=== PATIENT | female | born 1965 | race Caucasian/White ===

== ENCOUNTER 2019-03-25 19:24 | Emergency (ER) | payer OTHER ==
[~2019-03-25] VITALS: Ht 147.3 cm; Wt 54.0 kg
[~2019-03-25 19:24] MED LIST: NEURONTIN100 MG PO; PAROXETINE20 MG PO; TRAZODONE100 MG PO; WELLBUTRIN XL300 MG PO
[2019-03-25 22:43] LABS: BASO # 0.1 10*3/uL (0.0-0.1); BASO % 0.5 % (0.0-1.0); EOS # 0.2 10*3/uL (0.0-0.4); EOS % 1.2 % (1.0-4.0); HEMATOCRIT 38.5 % (37.0-47.0); LYMPH # 2.7 10*3/uL (1.3-4.4); LYMPH % 20.1 % (27.0-41.0); MEAN CELL VOLUME 82.6 fl (81.0-99.0); MEAN CORPUSCULAR HGB 27.9 pg (27.0-31.0); MEAN CORPUSCULAR HGB CONC 33.8 g/dl (33.0-37.0); MEAN PLATELET VOLUME 8.4 fl (9.6-12.3); MONO # 0.7 10*3/uL (0.1-1.0); MONO % 4.9 % (3.0-9.0); NEUT # 9.6 10*3/uL (2.3-7.9); NEUT % 72.9 % (47.0-73.0); PLATELET COUNT AUTOMATED 402 10*3/uL (130-400); RED BLOOD COUNT 4.66 10*6/uL (4.10-5.10); RED CELL DISTRI WIDTH 14.6 % (0-14.5); WHITE BLOOD COUNT 13.2 10*3/uL (4.8-10.8)
[2019-03-25 22:57] LABS: ALBUMIN 3.5 gm/dl (3.1-4.5); ALKALINE PHOSPHATASE 53 U/L (45-117); BUN 8 mg/dl (7-24); CHLORIDE 108 mmol/L (98-107); CREATININE 0.59 mg/dL (0.55-1.02); POTASSIUM 3.4 mmol/L (3.5-5.1); SGOT/AST 78 IU/L (3-35); SGPT/ALT 128 U/L (12-78); SODIUM 141 mmol/L (136-145); TOTAL PROTEIN 7.2 gm/dL (6.4-8.2)
[2019-03-25 22:58] LABS: ETHYL ALCOHOL < 3.0 mg/dl (<3)
== END 2019-03-26 08:40 | disposition home or self-care (01) ==
LOC: ED 19:24
PROVIDERS: Emergency Medicine
DX: F10.20 Alcohol dependence, uncomplicated (principal); R68.83 Chills (without fever); Z79.899 Other long term (current) drug therapy; Y90.9 Presence of alcohol in blood, level not specified

== ENCOUNTER 2019-07-14 12:06 | Inpatient (IN) | payer OTHER ==
[~2019-07-14] VITALS: Ht 147.3 cm; Wt 44.6 kg
[2019-07-14 12:28] VITALS: BP 171/87
--- NOTE | 2019-07-14 12:28 | NUR ---
53 year old FEMALE admitted to room # 501 for stabilization. 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 Compliant with admission procedure. Patient denies any anxiety, but is unable to sit still, taps toes to floor continuously, looks about room, unable to focus eyes on nurse during interview. See assessment forms for additional information about patient status.
[2019-07-14] MEDS ORDERED: GLUCOTROL5 MG PO (12:36)
[2019-07-14] MEDS ORDERED: ZESTRIL10 MG PO (12:36)
[2019-07-14] MEDS ORDERED: PROAIR HFA8.5 GM INH (12:37)
[2019-07-14] MEDS ORDERED: NEURONTIN100 MG PO (12:37)
[2019-07-14] MEDS ORDERED: PAXIL20 M1 PO (12:38)
[2019-07-14] MEDS ORDERED: GLUCOPHAGE1000 MG PO (12:38)
[2019-07-14] MEDS ORDERED: TRAZODONE100 MG PO (12:39)
[2019-07-14] MEDS ORDERED: LATUDA40 M1 PO (12:41)
[2019-07-14] MEDS ORDERED: BUPROPION HCL300 MG PO (12:41)
--- NOTE | 2019-07-14 13:37 | NUR ---
URINE TESTS SENT OFF TO ALLOW FOR MEDS TO BE ORDERED
[2019-07-14 13:46] LABS: BILIRUBIN 2+ (NEGATIVE); BLOOD TRACE-INTACT (NEGATIVE); CLARITY SL CLOUDY (CLEAR); COLOR YELLOW (YELLOW); GLUCOSE 1+ (NEGATIVE); KETONE 2+ (NEGATIVE); LEUKO ESTERASE NEGATIVE (NEGATIVE); NITRITE NEGATIVE (NEGATIVE); SPECIFIC GRAVITY >= 1.030 (1.005-1.030)
[2019-07-14 13:54] LABS: URINE AMPHETAMINES < 1000 (1000ng/ml); URINE BARBITURATES < 200 (200ng/ml); URINE BENZODIAZEPINES < 200 (200ng/ml); URINE CANNABINOIDS (THC) < 50 (50ng/ml); URINE COCAINE > 300 (300ng/ml); URINE METHADONE < 300 (300ng/ml); URINE OPIATES > 300 (300ng/ml)
[2019-07-14 13:57] LABS: BACTERIA 1+; EPITHELIAL CELLS 41-50; MUCOUS 4+; WBC 0-2 wbc/hpf (0-5)
[2019-07-14 13:58] LABS: URINE PHENCYCLIDINE < 25 (25ng/ml)
[2019-07-14 14:12] LABS: BASO # 0.1 10*3/uL (0.0-0.1); BASO % 0.5 % (0.0-1.0); EOS % 0.3 % (1.0-4.0); HEMATOCRIT 46.1 % (37.0-47.0); HEMOGLOBIN 15.7 g/dl (12.0-16.0); LYMPH # 2.3 10*3/uL (1.3-4.4); LYMPH % 22.9 % (27.0-41.0); MEAN CELL VOLUME 85.7 fl (81.0-99.0); MEAN CORPUSCULAR HGB 29.2 pg (27.0-31.0); MEAN CORPUSCULAR HGB CONC 34.1 g/dl (33.0-37.0); MEAN PLATELET VOLUME 9.1 fl (9.6-12.3); MONO # 0.4 10*3/uL (0.1-1.0); NEUT # 7.3 10*3/uL (2.3-7.9); PLATELET COUNT AUTOMATED 354 10*3/uL (130-400); RED BLOOD COUNT 5.38 10*6/uL (4.10-5.10); RED CELL DISTRI WIDTH 15.4 % (0-14.5); WHITE BLOOD COUNT 10.1 10*3/uL (4.8-10.8)
[2019-07-14 14:22] LABS: INTERNATIONAL NORM RATIO 0.9 (2.0-3.5)
--- NOTE | 2019-07-14 14:48 | NUR ---
PATIENT MEETS [facility]. CINA=15. PATIENT IS WANTING RESIDENTIAL TREATMENT FOR HER AFTERCARE PLAN. [facility] STAFF PROVIDED PATIENT WITH REFERRAL OPTIONS. SHIREEN MORAES B.A. DOG HAIR CLIPPER
[2019-07-14 15:02] LABS: ALBUMIN 4.3 gm/dl (3.1-4.5); ALKALINE PHOSPHATASE 89 U/L (45-117); BUN 6 mg/dl (7-24); CHLORIDE 98 mmol/L (98-107); CREATININE 0.68 mg/dL (0.55-1.02); POTASSIUM 3.6 mmol/L (3.5-5.1); SGOT/AST 82 IU/L (3-35); SODIUM 133 mmol/L (136-145); TOTAL PROTEIN 8.9 gm/dL (6.4-8.2)
--- NOTE | 2019-07-14 15:18 | NUR ---
ROUTINE LIBRIUM STARTED - PRN VISTARIL & ZOFRAN GIVEN - PT OFFERED BUT DECLINED RODY
[2019-07-14 15:21] LABS: ETHYL ALCOHOL < 3.0 mg/dl (<3); SGPT/ALT 127 U/L (12-78)
[2019-07-14 16:00] VITALS: BP 160/76
--- NOTE | 2019-07-14 17:33 | NUR ---
PATIENT ARGUING WITH SOMEONE ON THE PHONE.
[2019-07-14 20:00] VITALS: BP 142/66
--- NOTE | 2019-07-14 21:00 | NUR ---
PATIENT SLEEPING. AROUSES EASILY. DENIES ANY NEEDS AT THIS TIME. MVI INFUSING PER ORDER. PATIENT STATES SHE FEELS OK RIGHT NOW JUST REALLY TIRED. CALL LIGHT WITHIN REACH, WILL MONITOR
--- NOTE | 2019-07-14 22:00 | NUR ---
PATIENT AT THIS TIME REFUSED COVERAGE FOR BLOOD SUGAR OF 246. SHE STATES THAT SHE IS NOT AN INSULIN DEPENDENT DIABETIC AND DOES NOT WANT TO BOTTOM OUT OVER NIGHT
[2019-07-15] VITALS: BP 141/68
--- NOTE | 2019-07-15 04:22 | NUR ---
24 HR chart check completed.
--- NOTE | 2019-07-15 05:11 | NUR ---
PATIENTS BLOOD SUGAR THIS MORNING 394. EXPLAINED TO THE PATIENT THAT WE NEED TO START TAKING INSULIN. SHE AGREED AND UNDERSTOOD WHY.
[2019-07-15 09:17] VITALS: BP 140/68
[2019-07-15 12:00] VITALS: BP 177/92
--- NOTE | 2019-07-15 12:04 | NUR ---
PATIENT HAS BEEN ACCEPTED TO [facility] FOR RESIDENTIAL TREATMENT. THEY HAVE A BED AVAILABLE FOR HER FOR THURSDAY, AT 1:00PM. [place] STAFF WILL NEED TO SET UP TRANSPORTATION FOR HER THROUGH HER INSURANCE FOR THURSDAY. PATIENT AGREES AND UNDERSTANDS HER AFTERCARE PLAN. SHIREEN MORAES B.A. CORE INSERTER
[2019-07-15 16:00] VITALS: BP 148/74
--- NOTE | 2019-07-15 18:23 | NUR ---
IN TO ROOM. PATIENT AWAKE, ALERT AND ORIENTED. NO S/S OF DISTRESS OR SOB NOTED. NO STATED COMPLAINTS. PATIENT TALKING ON PHONE BED IN LOWEST LOCKED POSITION AND CALL LIGHT WITHIN REACH.
[2019-07-15 20:00] VITALS: BP 140/62
[2019-07-16] VITALS: BP 136/68
--- NOTE | 2019-07-16 04:00 | NUR ---
SLEEPING IN BED. RESP-EASY AND REGULAR. CALL LIGHT IN REACH.
--- NOTE | 2019-07-16 05:10 | NUR ---
BSG-503, SEE EMAR. NO C/O AT THIS TIME.
--- NOTE | 2019-07-16 05:15 | NUR ---
CALLED DR. DUDLEY AWARE OF BSG. SHE SAID TO GIVE THE 14UNITS AND CHECK BSG AFTER BREAKFAST.
[2019-07-16 12:00] VITALS: BP 170/64
[2019-07-16 16:47] VITALS: BP 176/84
--- NOTE | 2019-07-16 17:00 | NUR ---
MADE AWARE OF MANUAL 176/84 BP AND BGM OF 404, PATIENT ASYMPTOMATIC. STATED TO MONITOR, AND STATED HE WILL NOT START ANY OTHER NEW MED TONIGHT AND IF STAYS THE SAME/INCREASE, NEW MEDS WILL BE CONSIDERED FOR TOMORROW AM.
[2019-07-16 20:00] VITALS: BP 164/74
[2019-07-17] VITALS: BP 160/70
[2019-07-17 04:00] VITALS: BP 148/65
[2019-07-17 08:00] VITALS: BP 120/58
[2019-07-17 16:00] VITALS: BP 168/70
[2019-07-17 20:00] VITALS: BP 170/70
[2019-07-18] VITALS: BP 129/68
--- NOTE | 2019-07-18 | NUR ---
PT SLEEPING IN BED, AWAKENS EASILY. RESP-EASY AND REGULAR. NO C/O AT THIS TIME. CALL LIGHT IN REACH. SEE SHIFT ASSESSMENT.
--- NOTE | 2019-07-18 03:15 | NUR ---
24 HR chart check completed.
--- NOTE | 2019-07-18 04:00 | NUR ---
SLEEPING IN BED. RESP-EASY AND REGULAR. CALL LIGHT IN REACH.
--- NOTE | 2019-07-18 05:30 | NUR ---
BSG-325, SEE EMAR. TOLERATED ROUTINE MED WITH NO PROBLEM. CALL LIGHT IN REACH.
[2019-07-18 06:32] LABS: BASO # 0.1 10*3/uL (0.0-0.1); BASO % 0.6 % (0.0-1.0); EOS # 0.1 10*3/uL (0.0-0.4); HEMATOCRIT 38.5 % (37.0-47.0); HEMOGLOBIN 12.9 g/dl (12.0-16.0); LYMPH # 3.4 10*3/uL (1.3-4.4); LYMPH % 32.8 % (27.0-41.0); MEAN CELL VOLUME 86.9 fl (81.0-99.0); MEAN CORPUSCULAR HGB 29.1 pg (27.0-31.0); MEAN CORPUSCULAR HGB CONC 33.5 g/dl (33.0-37.0); MEAN PLATELET VOLUME 9.4 fl (9.6-12.3); MONO # 0.7 10*3/uL (0.1-1.0); MONO % 6.4 % (3.0-9.0); PLATELET COUNT AUTOMATED 315 10*3/uL (130-400); RED BLOOD COUNT 4.43 10*6/uL (4.10-5.10); RED CELL DISTRI WIDTH 15.3 % (0-14.5); WHITE BLOOD COUNT 10.3 10*3/uL (4.8-10.8)
[2019-07-18 06:52] LABS: CREATININE 0.66 mg/dL (0.55-1.02)
[2019-07-18 07:43] VITALS: BP 108/60
--- NOTE | 2019-07-18 09:44 | NUR ---
RECEIVED CALL THAT THE TRANSPORTATION RIDE IS OUTSIDE THE [facility]. [facility] CALLED THAT THE DOCTOR HAS NOT SEEN THE PATIENT & WILL ATTEMPT TO REACH HIM BUT NOT SURE HOW LONG IT WILL TAKE.
[2019-07-18] MEDS ORDERED: LISINOPRIL20 MG PO (10:11)
--- NOTE | 2019-07-18 10:29 | NUR ---
Discharge instructions reviewed with patient/family. Patient receptive and verbalizes understanding. Follow-up care arranged. Written instructions given to patient/family. DR HARRELL ROUNDED AND SAW THE PATIENT PRIOR TO [facility]AVING [facility]
== END 2019-07-18 10:29 | disposition home or self-care (01) | DRG 897 ==
LOC: 5E 12:06
PROVIDERS: Internal Medicine; ADMIT Internal Medicine
DX: F10.239 Alcohol dependence with withdrawal, unspecified (principal); E87.1 Hypo-osmolality and hyponatremia; F14.90 Cocaine use, unspecified, uncomplicated; F11.90 Opioid use, unspecified, uncomplicated; J45.909 Unspecified asthma, uncomplicated; F17.210 Nicotine dependence, cigarettes, uncomplicated; G25.81 Restless legs syndrome; R82.71 Bacteriuria; I10 Essential (primary) hypertension; E11.65 Type 2 diabetes mellitus with hyperglycemia; F41.9 Anxiety disorder, unspecified; F31.9 Bipolar disorder, unspecified; Z88.8 Allergy status to other drugs, medicaments and biological substances; Z91.030 Bee allergy status; Z79.51 Long term (current) use of inhaled steroids; Z71.6 Tobacco abuse counseling; Z79.899 Other long term (current) drug therapy; Z79.84 Long term (current) use of oral hypoglycemic drugs